=== PATIENT | female | born 1985 | race Caucasian/White ===

== ENCOUNTER 2018-08-08 14:11 | Outpatient (REF) | payer OTHER, SELFPAY ==
--- NOTE | 2018-08-08 13:40 | PAPFT_PTH ---
PATIENT: Blaire Rivera LOC: [facility] U#:[id number] AGE/SX: 32/F ROOM: RE08/08/[address]: RITA Banegas : 1985 BED: DIS: 08/08/2018 SPEC #: [id number] RECD: 08/08/18 17:32 STATUS: DAINEL RELoly #: [id number] CAYETANO: 08/08/18 13:[address]: Dolores Simon DEPT: [facility] Cytology RECD BY: Dai Gordillo ENTERED: 08/08/18 17:33 SP TYPE: PAPFT OTHR DR: Alyssia Christy APRN Tissues: 1 - CX/ENDOCX FOR PAP SMEARS Procedures: PAP THIN PREP/UVM Screening Comments: [id number]
== END 2018-08-08 14:31 ==
LOC: LBN 14:11
PROVIDERS: Visit Provider Nurse Practitioner Family
DX: Z12.4 Encounter for screening for malignant neoplasm of cervix (principal)
CPT/HCPCS: 88142

== ENCOUNTER 2018-08-29 13:17 | Emergency (ER) | payer OTHER, SELFPAY ==
[2018-08-29] VITALS (10 sets, daily range): BP systolic 91–122; BP diastolic 67–80; PULSE 70–87; RESP 14–23; TEMP 37.2; O2SAT 95–98
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
[2018-08-29] MEDS: Acetaminophen 500 MG TAB 1000 MG PO (14:10)
[2018-08-29] MEDS: Ibuprofen 600 MG TAB PO (14:21)
== END 2018-08-29 14:45 | disposition home or self-care (01) ==
PROVIDERS: Emergency Provider Physician Assistant
DX: M62.838 Other muscle spasm (principal); M54.2 Cervicalgia; M25.511 Pain in right shoulder; V43.52XA Car driver injured in collision with other type car in traffic accident, initial encounter
CPT/HCPCS: 99284; 70450; 72125

== ENCOUNTER 2018-09-04 09:01 | Outpatient (CLI) | payer OTHER, SELFPAY ==
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
== END 2018-09-04 09:21 ==
DX: S20.219A Contusion of unspecified front wall of thorax, initial encounter (principal); R07.81 Pleurodynia
CPT/HCPCS: 71046; 71100

== ENCOUNTER 2019-07-11 10:00 | Emergency (ER) | payer OTHER, SELFPAY ==
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
[2019-07-11 10:04] VITALS: BP 128/90; PULSE 123; RESP 18; TEMP 37.2; O2SAT 97
[2019-07-11 10:09] LABS: Bilirubin Negative (Negative); Blood Negative (Negative); Clarity Clear (Clear); Glucose Negative (Negative); Ketones Negative (Negative); Leukocyte Esterase Negative (Negative); Nitrite Negative (Negative); Specific Gravity <= 1.005 (1.005-1.025); Urobilinogen 0.2 EU/dL (Up TO 0.2)
--- NOTE | 2019-07-11 10:30 | DI.CT_ITS ---
EXAM: CT RENAL COLIC WO CLINICAL HISTORY: R flank pain, r/o kidney stone, mass. TECHNIQUE: Imaging Protocol: Axial computed tomography images with coronal and sagittal reformatted images were created and reviewed. CONTRAST MATERIAL: Intravenous: Omnipaque 350 Contrast volume:structured data in ml Contrast route:I V - Oral: yes / no COMPARISON: ABD PELVIS WITH CONTRAST from 02/16/2013 FINDINGS: ABDOMEN: Lung Bases: Normal where visualized. Liver: Question of slightly increased density. No measurable mass. Gallbladder and biliary tract: Status post cholecystectomy. No radiodense calculus or dilation. Pancreas: Normal density, no abnormal calcifications or inflammatory process. Spleen: Normal. Kidneys: Normal size, contour and axis. No radiodense stones or obstructive uropathy. No masses seen. Adrenal glands: No masses seen. Abdominal Aorta: Abdominal portion non-dilated. PELVIS: Bladder: Symmetric distention, no gross wall thickening. Bowel: No obstruction or bowel wall thickening. Peritoneal cavity: No ascites, collection or mesenteric inflammatory response. Bones: Sclerosis of the SI joints. No bony bridge bridging or erosion.. Reproductive: Status post hysterectomy. Ovaries unremarkable. IMPRESSION: Unremarkable CT scan of the abdomen and pelvis. RADIATION DOSE DELIVERED: Total DLP DATA REPOSITORY: All CT scans at this facility are submitted to the National Radiology Data Registry (NRDR) Dose Index Registry (DIR) with the [employer] (ACR). RADIATION OPTIMIZATION: All CT scans at this facility use at least one of these dose optimization te chniques: automated exposure control; mA and/or kV adjustment per patient size (includes targeted exa ms where dose is matched to clinical indication); or iterative reconstruction.
[2019-07-11] MEDS: Normal Saline Flush 10 ML SYR IVP (10:50)
[2019-07-11] MEDS: Lidocaine 5% Patch 1 PATCH TP (10:50)
[2019-07-11 10:51] LABS: Abs Immature Grans 0.01 k/cumm (0.0-0.09); Absolute Basophil Count 0.01 k/cumm (0.0-0.2); Absolute Eosinophil Count 0.18 k/cumm (0.0-0.7); Absolute Lymphocyte Count 1.72 k/cumm (1.2-3.4); Absolute Monocyte Count 0.58 k/cumm (0.11-0.7); Absolute Neutrophil Count 7.06 k/cumm (1.2-6.7); Basophils % 0.1; Eosinophils % 1.9; HCT 44.1 % (36.0-46.0); HGB 15.7 g/dL (12.0-15.5); Immature Grans % 0.1 %; Mean Corp. HGB Concentration 35.6 g/dL (32.0-36.0); Mean Corpuscular Hemoglobin 34.7 pg (27.0-33.0); Mean Corpuscular Volume 97.4 fL (80-95); Mean Platelet Volume 8.5 fL (8.0-11.0); Monocytes % 6.1; Neutrophils % 73.8; Platelet Count 287 x1000/uL (130-400); RBC 4.53 m/cumm (4.00-5.20); RBC Distribution Width 11.9 % (11.7-14.6); White Blood Cell Count 9.56 k/cumm (4.4-10.8)
[2019-07-11] MEDS: predniSONE 20 MG TAB 60 MG PO (10:51)
[2019-07-11] MEDS: Ketorolac 30 MG/ML VIAL IVP (10:51)
[2019-07-11 11:04] LABS: ALT 16 U/L (14-59); AST 9 U/L (15-37); Albumin 3.4 g/dL (3.4-5.0); Alkaline Phosphatase 77 U/L (46-116); Anion Gap 10.7 mmol/L (3-11); BUN 5 mg/dL (7-18); Bilirubin, Total 0.5 mg/dL (0.2-1.0); CO2 22.3 mmol/L (21.0-32.0); Calcium 8.8 mg/dL (8.5-10.1); Chloride 107 mmol/L (98-107); Glucose 115 mg/dL (74-106); Lipase 60 U/L (73-393); Potassium 3.3 mmol/L (3.5-5.1); Sodium 140 mmol/L (136-145); Total Protein 6.8 g/dL (6.4-8.2)
--- NOTE | 2019-07-11 11:21 | DI.VRAD_ITS ---
PROCEDURE INFORMATION: Exam: CT Abdomen And Pelvis Without Contrast Exam date and time: 07/11/2019 10:47 AM Age: 33 years old Clinical indication: Other: RT flank pain, R/O kidney stone, mass TECHNIQUE: Imaging protocol: Computed tomography of the abdomen and pelvis without contrast. Radiation optimization: All CT scans at this facility use at least one of these dose optimization techniques: automated exposure control; mA and/or kV adjustment per patient size (includes targeted exams where dose is matched to clinical indication); or iterative reconstruction. COMPARISON: CT ABD PELVIS WITH CONTRAST 02/16/2013 2:50 AM FINDINGS: Liver: The liver is within normal limits for this noncontrast study. Slight diffuse increased attenuation of the liver parenchyma when compared to the spleen. Gallbladder and bile ducts: There has been a cholecystectomy. There is no common bile duct dilation. There is no intrahepatic bile duct dilation. Pancreas: Unremarkable. No ductal dilation. Spleen: The spleen is normal. Adrenals: The adrenal glands are normal. Kidneys and ureters: No hydronephrosis. There is no evidence of renal or ureteral calcifications. Stomach and bowel: The stomach is normal. There is no evidence of intestinal obstruction. There is no wall thickening to suggest enteritis or colitis. Appendix: A normal appendix is identified. Intraperitoneal space: Unremarkable. No free air. No significant fluid collection. Vasculature: No abdominal aortic aneurysm. Lymph nodes: No enlarged lymph nodes. Bladder: Unremarkable as visualized. Reproductive: There has been a hysterectomy. The ovaries are normal. 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 No acute fracture. Soft tissues: Unremarkable. IMPRESSION: 1. No urolithiasis. 2. Cholecystectomy. 3. Hysterectomy. 4. Slight increased attenuation of the liver parenchyma when compared to the spleen which can be seen with iron deposition. 5. Bilateral and symmetrical superior sacroiliac joint sclerosis which can be seen with sacroiliitis. Dictated and Authenticated by: Rk Pino MD. Ordering:MAIKOL Dockery MD
== END 2019-07-11 11:55 | disposition home or self-care (01) ==
PROVIDERS: Emergency Provider Physician Assistant
DX: M46.1 Sacroiliitis, not elsewhere classified (principal); M62.830 Muscle spasm of back
CPT/HCPCS: 36415; 80053; 83690; 96374; 99284; 74176; 81003; 85025; 99285; J1885; J7512

== ENCOUNTER 2019-09-15 11:49 | Outpatient (REF) | payer OTHER, SELFPAY ==
--- NOTE | 2019-09-15 11:30 | PAPFT_PTH ---
PATIENT: Blaire Rivera LOC: [facility] U#:[id number] AGE/SX: 33/F ROOM: RE09/15/[address]: RITA Banegas : 1985 BED: DIS: 09/15/2019 SPEC #: [id number] RECD: 09/15/19 12:59 STATUS: DANIEL REQ #: [id number] CAYETANO: 09/15/19 11:[address]: Dolores Simon DEPT: [facility] Cytology RECD BY: Dai Gordillo ENTERED: 09/15/19 13:00 SP TYPE: PAPFT OTHR DR: Alyssia Christy APRN Tissues: 1 - CX/ENDOCX FOR PAP SMEARS Procedures: PAP THIN PREP/UVM Screening HPV DNA PROBE Comments: [id number]
== END 2019-09-15 12:09 ==
LOC: LBN 11:49
PROVIDERS: Visit Provider Nurse Practitioner Family
DX: Z12.4 Encounter for screening for malignant neoplasm of cervix (principal); Z11.51 Encounter for screening for human papillomavirus (HPV)
CPT/HCPCS: 88142; 87624

== ENCOUNTER 2020-04-15 09:41 | Outpatient (CLI) | payer OTHER, SELFPAY ==
[2020-04-16 14:38] LABS: COVID-19 RT-PCR UVMMC Result Negative (Negative)
== END 2020-04-15 09:42 | disposition home or self-care (01) ==
LOC: LBO 09:41
DX: Z20.822 Contact with and (suspected) exposure to COVID-19 (principal)
CPT/HCPCS: U0003

== ENCOUNTER 2020-10-14 06:29 | Emergency (ER) | payer OTHER, SELFPAY ==
--- NOTE | 2020-10-14 06:30 | DI.RAD_ITS ---
Exam(s) XR CHEST 2V PA LATERAL EXAM: XR CHEST 2V PA LATERAL CLINICAL HISTORY: right thoracic back pain TECHNIQUE: 2D digital imaging was performed. COMPARISON: CR XR ribs LT w PA lat chest from 09/04/2018 FINDINGS: The heart is not enlarged. The lungs are clear and well expanded. No pleural effusion seen. Mediastin al contours appear intact. IMPRESSION: Normal chest. RADIATION DOSE DELIVERED: Total DLP
[2020-10-14 06:32] VITALS: BP 131/78; PULSE 82; RESP 16; TEMP 36.2
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
[2020-10-14] MEDS: Lidocaine 5% Patch 1 PATCH TP (06:54)
[2020-10-14] MEDS: Cyclobenzaprine 10 MG TAB, 3 TABS/BTL PO (07:41)
== END 2020-10-14 07:42 | disposition home or self-care (01) ==
PROVIDERS: Emergency Provider Emergency Medicine
DX: M62.830 Muscle spasm of back (principal)
CPT/HCPCS: 99283; 71046

== ENCOUNTER 2021-02-16 16:05 | Outpatient (REF) | payer OTHER, SELFPAY ==
--- NOTE | 2021-02-16 15:10 | PAPFT_PTH ---
PATIENT: Blaire Rivera LOC: [facility] U#:[id number] AGE/SX: 35/F ROOM: RE02/16/[address]: RITA Banegas : 1985 BED: DIS: 02/16/2021 SPEC #: [id number] RECD: 02/16/21 17:43 STATUS: DANIEL REQ #: [id number] CAYETANO: 02/16/21 15:[address]: Dolores Simon DEPT: [facility] Cytology RECD BY: Dai Gordillo ENTERED: 02/16/21 17:44 SP TYPE: PAPFT OTHR DR: Alyssia Christy APRN Tissues: 1 - CX/ENDOCX FOR PAP SMEARS Procedures: PAP THIN PREP/UVM Screening HPV DNA PROBE Comments: [id number] (HPV 16 & 18/45)
== END 2021-02-16 16:06 | disposition home or self-care (01) ==
LOC: LBN 16:05
PROVIDERS: Visit Provider Nurse Practitioner Family
DX: Z12.72 Encounter for screening for malignant neoplasm of vagina (principal); Z11.51 Encounter for screening for human papillomavirus (HPV); Z90.710 Acquired absence of both cervix and uterus; Z86.001 Personal history of in-situ neoplasm of cervix uteri
CPT/HCPCS: 88142; 87624

== ENCOUNTER 2021-07-12 08:48 | Outpatient (CLI) | payer OTHER, SELFPAY ==
--- NOTE | 2021-07-12 08:15 | DI.RAD_ITS ---
Exam(s) XR SHOULDER LT COMPLETE 2+V EXAM: XR SHOULDER LT COMPLETE 2+V CLINICAL HISTORY: shoulder pain. TECHNIQUE: 2D digital imaging was performed. Two views. COMPARISON: No exams were available for comparison FINDINGS: BONES: No acute fracture is present. No bony destructive lesion is seen. JOINTS: No dislocation present. No degenerative changes. SOFT TISSUE: Normal. No tendon or joint space calcifications. IMPRESSION: Unremarkable radiographs of the left shoulder. DATA REPOSITORY: RADIATION DOSE DELIVERED:
== END 2021-07-12 08:49 | disposition home or self-care (01) ==
LOC: DIORS 08:50
PROVIDERS: Visit Provider Student in an Organized Health Care Education/Training Program
DX: M25.512 Pain in left shoulder (principal)
CPT/HCPCS: 73030

== ENCOUNTER 2021-11-08 02:25 | Outpatient (CLI) | payer BC, SELFPAY ==
[2021-11-08 12:15] LABS: Source Nasal/Nares
[2021-11-08 14:49] LABS: COVID-19 PCR Negative (Negative)
== END 2021-11-08 02:26 | disposition home or self-care (01) ==
PROVIDERS: Visit Provider Student in an Organized Health Care Education/Training Program
DX: Z20.822 Contact with and (suspected) exposure to COVID-19 (principal)
CPT/HCPCS: 87635

== ENCOUNTER 2021-11-10 07:56 | Day surgery (SDC) | payer OTHER, SELFPAY ==
[2021-11-10] VITALS (9 sets, daily range): BP systolic 112–130; BP diastolic 81–97; PULSE 76–90; RESP 16–24; TEMP 36.2–36.6; O2SAT 93–98; BMI 34.3
[2021-11-10] MEDS: Lactated Ringers 1,000 ML 30 ML IV (08:55)
--- NOTE | 2021-11-10 09:53 | W.ANESPRE ---
General Info Date of Service Date Performed: 11/10/21 Height: 5 ft 1 in Weight: 82.4 kg Body Mass Index (BMI): 34.3 Surgical Procedure: Operation Date: 11/10/21 09:55 Proposed Procedure Side Surgeon p Shoulder Arthroscopy w/Extensive Debridement, Biceps Tenodesis, Subacromial Decompression and Distal Clavicle Excision Left Riley Schmidt MD Meds Allergies and Home Medications Allergies Allergy/AdvReac Type Severity Reaction Status Date / Time Penicillins Allergy Mild Skin Rash Verified 11/10/21 08:12 aspirin AdvReac Intermediate Nausea Verified 11/10/21 08:12 Home Medication Medication Instructions Recorded acetaminophen 650 mg 650 mg PO Q8H PRN 09/03/18 tablet,extended release (Tylenol Arthritis Pain) naproxen 250 mg tablet 250 - 500 mg PO BID PRN #40 tabs 11/10/21 oxycodone 5 mg tablet 5 - 10 mg PO Q4H PRN moderate to 11/10/21 severe pain #18 tabs Current Visit Medications: Current Medications Generic Name Dose Route Start Last Admin Trade Name Freq PRN Reason Stop Dose Admin Ringer's Solution 1,000 mls @ 30 mls/hr 11/10/21 06:00 11/10/21 08:55 IV 11/10/21 16:00 30 mls/hr INFUSION JUN Administration Cefazolin Sodium/Dextrose 2 gm in 50 mls @ 100 mls/hr 11/10/21 06:00 Ancef Duplex IVPB 11/10/21 23:59 PREOP JUN IV Miscellaneous Supplies 1 each 11/10/21 06:00 Iv Access IV 11/10/21 23:59 DIRECTED JUN Oxycodone HCl 5 - 10 mg 11/10/21 07:15 Oxycodone 5 Mg Tab PO Q4H PRN PRN Sodium Chloride 0 ml 11/10/21 06:00 Normal Saline Flush 10 Ml Syr IV 11/10/21 23:59 PRN PRN Sodium Chloride 0 ml 11/10/21 06:00 Normal Saline 10 Ml Vial IJ 11/10/21 23:59 DIRECTED PRN Sterile Water 0 ml 11/10/21 06:00 Water,Injection,Sterile 10 Ml Vial IJ 11/10/21 23:59 DIRECTED PRN PFSH Active Problems Active Problems: Problem Status Onset Code Bursitis of left shoulder M75.52 Pain in left acromioclavicular joint M25.512 SLAP lesion of left shoulder S43.432A Chronic periscapular pain on left side M25.512, G89.29 Tendinitis of long head of biceps brachii of left shoulder M75.22 Vulvar lesion N90.89 Spasm of thoracic back muscle M62.830 Shoulder pain, left M25.512 History of section, low transverse Z98.891 Status post LEEP (loop electrosurgical excision procedure) of cervix Z98.890 Status post cholecystectomy Z90.49 Status post laparoscopic hysterectomy 07/28/15 Z90.710 Acquired absence of both cervix and uterus 08/02/17 Z90.710 Cigarette smoker 03/07/17 F17.210 Personal history of cervical dysplasia 09/28/11 Z87.410 Status post laparoscopic cholecystectomy 02/16/13 Z90.49 Asthma J45.909 Medical History Medical History Comments:: last cigarette today 0745 Surgical History Surgical History Cervical Procedure 2010 LEEP section Cholecystectomy 2013 Vaginal hysterectomy WITH B/L SALPINGECTOMY Tobacco Smoking/Tobacco Use Status: Current every day Tobacco Type: cigarettes Alcohol Alcohol Intake: current Alcohol intake frequency: a few times a month Substance Use Substance use: Never Substance use type: does not use Vital Signs and Lab Results Vital Signs Most Recent Vital Signs in EMR: Most Recent Vital Signs Temp Pulse Resp BP Pulse Ox 36.5 C 82 20 120/85 98 11/10/21 08:14 11/10/21 08:14 11/10/21 08:14 11/10/21 08:14 11/10/21 08:14 Lab Results Blood Type / Crossmatch: No Data to Display Complete Blood Count: No Data to Display Complete Metabolic Panel: No Data to Display Liver Function Panel: No Data to Display Coagulation Panel: No Data to Display Cardiac Panel: No Data to Display Arterial Blood Gas: No Data to Display Venous Blood Gas: No Data to Display Pancreas Panel: No Data to Display Thyroid Panel: No Data to Display Infectious Disease: Coronavirus (COVID-19)(PCR) Negative (Negative) 11/08/21 08:25 Coronavirus 2019 Source Nasal/Nares 11/08/21 08:25 Blood Cultures: No Data to Display Toxicology Panel: No Data to Display Panel: No Data to Display Anesthesia Assessment and Plan Anesthesia History Personal History: No History of Anesthesia Complications Family History: No Family History of Anesthesia Complications Exercise Tolerance Exercise Tolerance: Metabolic Equivalents>4 Pertinent Negatives Pertinent Negatives: No Symptoms of GERD, No Major Cardiovascular Symptoms or Complaints, No Major Pulmonary Symptoms or Complaints (Smoker x 27 years ppd) and No History of CVA/TIA Cardiac & Pulmonary Exam Cardiac Exam: Normal S1/S2 Heart Sounds Pulmonary Exam: Clear Bilateral Breath Sounds Implantable Cardiac Device Does patient have a Pacemaker or an ICD?: No Airway Exam Known Difficult Airway: No Mallampati Class: 1 Mouth Opening: Normal (> 3cm) Thyromental Distance: Greater than 3 cm Neck Range of Motion: Full ROM Neck Circumference: Normal Teeth Condition: Edentulous ASA Classification ASA Score: ASA 2 Emergency Case?: No NPO Status NPO Status: NPO Clears >2 hours, Solids >8 hours Status Status: History of Hysterectomy Anesthesia Plan Resuscitation Status: Full Code Anesthesia Technique: General Anesthesia Airway Planned: Endotracheal Tube Pain Management: Surgeon and patient request nerve block Monitors Used: Standard Monitors
--- NOTE | 2021-11-10 10:35 | W.ANESNERVE ---
Nerve Block Single Injection Procedure Date and Time Date Performed: 11/10/21 Procedure Start: 10:20 Location Where Procedure Performed Procedure Location: Day Surgery Unit Reason Performed: Postoperative Analgesia Requesting Provider: Riley Schmidt Timeout Performed Timeout Performed: Yes Monitoring Used ECG, Blood Pressure and SpO2 Sterility Sterility: Hand Hygiene, Surgical Cap, Surgical Mask, Eye Protection and Chlorhexidine Sedation Given During Procedure Sedation Given (Indicate Dose Given): Versed IV Dose:: 2 mg Patient Mental Status Patient Mental Status: Sedate with meaningful communication Nerve Block 1st Nerve Block: Laterality: Left Block Type: Interscalene Needle / Catheter Used: 100mm SonoPlex II Local Anesthetic Bolus (Indicate Dose Given): Lidocaine used for local infiltration of skin, Injected in 3-5ml increments after negative blood aspiration, Bupivacaine 0.5% Dose:: 10cc and Exparel Dose:: 10cc Additives (Indicate Dose Given): None Ultrasound: Sterile probe cover and gel used Ultrasound Image Saved?: Yes Nerve Stimulator: Not Used Paresthesia: Left (Transient- Needle repositioned to releive parathesia, confirmed with pt that parathesia gone before injecting) Paresthesia Duration: Transient Post Procedure Pain score (0-10): 0 Procedure Tolerated: No Complications and Patient tolerated well Procedure Outcome: Successful Performed By: Silver Diaz
[2021-11-10] MEDS: EPINEPHrine 30 MG/30 ML VIAL (12:33)
--- NOTE | 2021-11-10 13:28 | PDOC.DSDIS_ITS ---
Discharge Plan Disposition Patient Disposition: HOME Condition: Stable Discharge Details Reason For Visit: Left shoulder surgery Attending Provider: Riley Schmidt Primary Care Provider: Alyssia Christy Home Meds and New Rx's Prescriptions: New naproxen 250 mg tablet 250 - 500 mg PO BID PRNQty: 40 0RF Rx Instructions: take with a meal oxycodone 5 mg tablet 5 - 10 mg PO Q4H MDD 30 mg PRN (Reason: moderate to severe pain) Qty: 18 0RF Continued acetaminophen [Tylenol Arthritis Pain] 650 mg tablet extended release 650 mg PO Q8H PRN Discharge Instructions Additional Instructions: Surgery: Left shoulder arthroscopy with extensive debridement, biceps tenodesis, subacromial decompression, and distal clavicle excision Activity: You should gradually increase range of motion motion and use of your shoulder. You may use your shoulder for all regular activities as long as you p rotect the biceps and avoid any resisted or weighted elbow flexion or supination. Avoid lifting, reaching overhead or away from body for at least 6 to 8 weeks. You may use the sling whenever you are out of the house for a few weeks. At home it is best to remove the sling and rest the arm on a pillow at your side or support the operative side with your other hand. A physical therapy prescription will be sent electronically to start in about 2 weeks. Prescriptions: Naproxen 250 mg take 1-2 every 12 hours with a meal as needed for moderate pain Oxycodone 5 mg take 1-2 every 4-6 hours as needed for severe pain You may use [id number] Tylenol (acetaminophen) as needed for mild pain. These pain medications may be taken all at once or in different combinations as needed. Also, recommend Colace (docusate) as a stool softener as surgery and pain medicine cause constipation. You may try [id number] diphenhydramine (Benadryl) 25-50 mg nightly as a sleep aid Dressings: Remove shoulder bandage after 3 days. Leave the sticky Steri-Strips in place until they fall off or remove them after you shower. Cover the incisions with Band-Aids or leave them open to air. You may shower after 5 days. Follow-up: 10-[address] Schmidt You may take off the leg compression stockings this evening at home. You may also leave them on a few days longer if you have a history of leg swelling or edema. Let us know right away if you develop any redness, drainage, fevers, chest pain, or trouble breathing. Do not drink alcohol or drive for at least 24 hours after anesthesia. Please call the office during business hours with any questions or concerns. Discharge Orders Discharge Orders: Discharge Order (Routine); Ordered 11/10/21 Ordered By: Riley Schmidt DS: Diagnosis Discharge Diagnosis (1) SLAP lesion of left shoulder: Status: Acute (2) Bursitis of left shoulder: Status: Acute (3) Pain in left acromioclavicular joint: Status: Acute (4) Tendinitis of long head of biceps brachii of left shoulder: Status: Acute
--- NOTE | 2021-11-10 13:32 | ROE_ITS ---
Operative Note Operative Note DATE OF PROCEDURE: 11/10/21 PRE-OP DIAGNOSIS: Left: 1. AC joint pain 2. LHB tendinopathy 3. Bursitis POST-OP DIAGNOSIS: same PROCEDURE: Left: 1. Arthroscopic distal clavicle excision, CPT# 21657. This involved arthroscopically exposing the underside of the acromioclavicular joint, smoothing out bone spurs, and removing just enough of the distal clavicle so there was no bone left engaging the acromion. 2. Arthroscopic biceps tenodesis, CPT# 76454. This involved arthroscopically suturing and reattaching the long head of the biceps tendon to the proximal humerus at the superior margin of the bicipital groove with a screw at the correct tension. 3. Extensive debridement, CPT# 21883. This involved using arthroscopic hand instruments, power instruments, and radiofrequency instruments to release the long head of the biceps tendon and debride areas of labral tearing, SLAP tearing, capsulitis, synovitis, and chondromalacia about the biceps groove within the glenohumeral joint anteriorly, superiorly and posteriorly. 4. Subacromial decompression with partial acromioplasty, CPT# 28153. This involved using arthroscopic power instruments and a radiofrequency wand to complete a bursectomy and remove bone spurs on the undersurface of the acromion. The senior assistant manager was medically required in order to help assist in techniques above, which require positioning the arm, holding the arthroscope, and manip ulating multiple instruments and sutures at the same time. This cannot be done without the help of an experienced senior assistant manager. SURGEON: Riley Schmidt BRASS FINISHER: Will Crow ANESTHESIA TYPE: General LMA/ETT and Primary Nerve Block Refer to Anesthesia Record ESTIMATED BLOOD LOSS: 10 PATHOLOGY: none sent COMPLICATIONS: None Patient was transported to: PACU Patient's condition: stable Implants: Arthrex: 4.75mm SwiveLocks x 1 Indications: The patient was diagnosed with the above conditions and appropriately indicated for surgical intervention. Please see complete medical record for details. Findings: Exam under anesthesia: Full range of motion, no instability Glenohumeral joint: Significant anterior synovitis involving the rotator interval between the subscapularis and leading edge of the supraspinatus. Both the subscapularis supraspinatus and remainder of the rotator cuff was intact. Long head biceps tendon had moderate injection. There is anterior labral fraying that continued superiorly into a SLAP tear. The anterior triangle had chronic appearing significant fraying fibrillations and some small soft tissue and probably cartilaginous loose bodies. Mild chondromalacia on the anterior humeral head. Remainder articular cartilage intact. Subacromial space: Moderate bursitis. Intact bursal rotator cuff. Mild impingement distal clavicle on acromion with mild downsloping hypertrophic widening distal clavicle and acromion. Procedure Description: In the operating room, general anesthesia was induced. Bilateral shoulders were examined. The patient was positioned in the beachchair position. All bony prominences were well-padded. Preoperative antibiotics were administered. The shoulder was prepped and draped in the usual sterile fashion. The correct pa tient, procedure, and side of the procedure were all verified prior to incision. Starting through the posterior portal a standard complete diagnostic arthroscopy was performed of the glenohumeral joint including inspection of the long head of the biceps, anterior and superior labrum, subscapularis tendon, supraspinatus and infraspinatus tendons, and axillary recess. The glenoid and humeral head cartilage as well as the posterior labrum were inspected from an anterior viewing portal. Significant findings and interventions noted above. An all-arthroscopic suprapectoral biceps tenodesis was performed through an anterior portal using a Loop N Tack method with a SutureTape FiberLink cinched around and through the tendon. The biceps was tenotomized from the labrum and fixated with a suture anchor at the superior margin of the bicipital groove. Starting through the posterior portal, the arthroscope was directed into the subacromial space. A lateral 50 yard line lateral portal was created. A combination of power instruments and a radiofrequency ablator were used to debride bursitis anteriorly, posteriorly, and laterally as well as expose and smooth bone spurring on the undersurface of the acromion. The coracoacromial ligament was partially released. The bursectomy was completed viewing laterally and working from posteriorly and the rotator cuff was thoroughly inspected with findings noted above. The anterior portal was redirected towards the undersurface of the AC joint. A shaver and electrocautery device were used to clear soft tissue from the undersurface of the AC joint. The distalmost few millimeters of the distal clavicle was then removed and smoothed. Care was taken to alternate between working through the anterior portal and viewing through the anterior portal to ensure that proper amount of bone was removed and there was no engaging bone left behind especially superiorly. The shoulder was drained of arthroscopic fluid. All portal sites were copiously irrigated. These incisions were closed using 3-0 Monocryl in a buried fashion and then covered with Mastisol, Steri-Strips, Xeroform, dry gauze, and ABDs. The dressings were covered and secured with Medipore tape. The operative extremity was placed into a sling for immobilization. The patient awoke from anesthesia without complication and was transferred to the recovery room in a stable condition.
--- NOTE | 2021-11-10 13:42 | W.ANESPOSTOP ---
Postoperative Evaluation Date, Time and Location Date Performed: 11/10/21 Time Performed: 13:42 Patient Location: Day Surgery Unit Vital Signs Most Recent Imported Vital Signs: Most Recent Vital Signs Temp Pulse Resp BP Pulse Ox 36.5 C 78 18 123/88 94 11/10/21 13:18 11/10/21 13:18 11/10/21 13:18 11/10/21 13:18 11/10/21 13:18 Pain Score Most Recent Pain Score: Most Recent Pain Score Pain Level 0 11/10/21 13:18 Assessment Mental Status: Awake (Alert & Oriented to Patient Baseline) Airway and Respiratory Function: Patent airway with normal (patient baseline) respiratory exam Cardiovascular Function: Hemodynamically Stable Hydration Status: Adequately Hydrated Nausea & Vomiting: No Nausea or Vomiting Pain: Pt. Denies Any Pain Peripheral Nerve Block: Regional nerve block not resolved at time of post operative discharge
== END 2021-11-10 14:20 | disposition home or self-care (01) ==
PROVIDERS: Visit Provider Student in an Organized Health Care Education/Training Program
PROC: (CPT 29805; principal; 2021-11-10 09:45)
DX: M75.52 Bursitis of left shoulder (principal); M75.22 Bicipital tendinitis, left shoulder; S43.432A Superior glenoid labrum lesion of left shoulder, initial encounter; X58.XXXA Exposure to other specified factors, initial encounter; M75.42 Impingement syndrome of left shoulder
CPT/HCPCS: 29828; 29826; 29824; 29823; 76942; J0131; J1100; J1885; J2250; J2405

== ENCOUNTER 2022-08-24 09:38 | Outpatient (REF) | payer BC, SELFPAY ==
[2022-08-24 13:12] LABS: Bilirubin Negative (Negative); Blood Large (Negative); Clarity Clear (Clear); Glucose Negative (Negative); Ketones Negative (Negative); Leukocyte Esterase Moderate (Negative); Nitrite Positive (Negative); Specific Gravity <= 1.005 (1.005-1.025); Urobilinogen 0.2 mg/dL (Up to 0.2); pH 5.5 (5-8)
[2022-08-24 13:25] LABS: Bacteria Moderate HPF (Negative); C & S Indicated? Yes; Casts Negative LPF (Negative); Crystals Negative HPF (Negative); Epithelial Cells Few HPF (Negative); Mucus Negative (Negative); Other Cells Rare Yeast (Negative)
== END 2022-08-24 09:39 | disposition home or self-care (01) ==
LOC: LBN 09:38
PROVIDERS: PCP Nurse Practitioner Family; Visit Provider Physician Assistant
DX: N39.0 Urinary tract infection, site not specified (principal)
CPT/HCPCS: 87077; 81003; 81015; 87086; 87186

== ENCOUNTER 2022-09-01 12:02 | Outpatient (REF) | payer BC, SELFPAY | END 2022-09-01 12:03 | disposition home or self-care (01) | LOC: LBN 12:02 | PROVIDERS: PCP Nurse Practitioner Family; Visit Provider Physician Assistant Medical | DX: R30.0 Dysuria (principal) | CPT/HCPCS: 87086 ==

== ENCOUNTER 2022-09-04 12:31 | Outpatient (REF) | payer BC, SELFPAY ==
--- NOTE | 2022-09-04 11:00 | PAPFT_PTH ---
PATIENT: Blaire Rivera LOC: [facility] U#:[id number] AGE/SX: 36/F ROOM: RE09/04/[address]: Elizabeth Garsia NP : 1985 BED: DIS: 09/04/2022 SPEC #: [id number] RECD: 09/04/22 12:42 STATUS: DANIEL RELoly #: [id number] CAYETANO: 09/04/22 11:[address]: Sun WIN,Elizabeth DEPT: [facility] Cytology RECD BY: Dai Gordillo ENTERED: 09/04/22 12:43 SP TYPE: PAPFT OTHR DR: Donald Meyers DNP Tissues: 1 - CX/ENDOCX FOR PAP SMEARS Procedures: PAP THIN PREP/UVM Screening HPV DNA PROBE Comments: [id number]
== END 2022-09-04 12:32 | disposition home or self-care (01) ==
LOC: LBN 12:31
PROVIDERS: PCP Nurse Practitioner Family; Visit Provider Nurse Practitioner Women's Health
DX: Z11.51 Encounter for screening for human papillomavirus (HPV) (principal)
CPT/HCPCS: 88142; 87624

== ENCOUNTER 2022-09-05 02:52 | Outpatient (CLI) | payer BC, SELFPAY ==
[2022-09-05 14:15] LABS: TSH (W/Ref FT4) 2.05 uIU/mL (0.36-3.74)
[2022-09-06 19:34] LABS: FSH 9.6 mIU/mL (See Note)
== END 2022-09-05 02:53 | disposition home or self-care (01) ==
LOC: LBO 02:52
PROVIDERS: PCP Nurse Practitioner Family; Visit Provider Nurse Practitioner Women's Health
DX: R23.2 Flushing (principal); R63.5 Abnormal weight gain
CPT/HCPCS: 36415; 83001; 84443

== ENCOUNTER 2024-10-27 14:51 | Outpatient (REF) | payer OTHER, SELFPAY ==
--- NOTE | 2024-10-27 14:40 | PAPFT_PTH ---
PATIENT: Blaire Rivera LOC: [facility] U#:[id number] AGE/SX: 38/F ROOM: RE10/27/[address]: Elizabeth Garsia NP : 1985 BED: DIS: 10/27/2024 SPEC #: [id number] RECD: 10/27/24 18:01 STATUS: DANIEL REQ #: [id number] CAYETANO: 10/27/24 14:[address]: Sun WIN,Elizabeth DEPT: [facility] Cytology RECD BY: Dai Gordillo ENTERED: 10/27/24 18:02 SP TYPE: PAPFT OTHR DR: Unknown,Unknown Tissues: 1 - CX/ENDOCX FOR PAP SMEARS Procedures: PAP THIN PREP/UVM Screening HPV DNA PROBE Comments: [id number] (HPV 16 & 18/45)
== END 2024-10-27 14:52 | disposition home or self-care (01) ==
LOC: LBN 14:51
PROVIDERS: Visit Provider Nurse Practitioner Women's Health
DX: Z12.4 Encounter for screening for malignant neoplasm of cervix (principal)
CPT/HCPCS: 88142; 87624

== ENCOUNTER 2024-10-27 15:05 | Outpatient (CLI) | payer OTHER, SELFPAY ==
[2024-10-27 15:13] LABS: HCT 44.4 % (36.0-46.0); HGB 15.8 g/dL (11.2-15.7); MCH 34.5 pg (27.0-33.0); MCHC 35.6 % (32.0-36.0); MCV 97 fL (80-95); MPV 8.0 fL (8.0-11.0); Platelet Count 273 10^3/uL (130-400); RBC 4.58 10^6/uL (3.93-5.22); RDW 11.7 % (11.7-14.6); RDW-SD 41.8 fL; WBC 10.13 10^3/uL (4.4-10.8)
[2024-10-27 15:35] LABS: Hemoglobin A1C 4.8 % (<5.7)
[2024-10-27 16:31] LABS: ALT 20 U/L (14-59); AST 12 U/L (15-37); Albumin 3.7 g/dL (3.4-5.0); Alkaline Phosphatase 104 U/L (46-116); Anion Gap 8.8 mmol/L (3-11); BUN 9 mg/dL (7-18); Bilirubin, Total 0.4 mg/dL (0.2-1.0); CO2 29.2 mmol/L (21.0-32.0); Calcium 9.6 mg/dL (8.5-10.1); Calculated LDL 149 mg/dL (<100); Chloride 103 mmol/L (98-107); Cholesterol 233 mg/dL (<200); Estimated GFR 112.75 (mL/min/1.73m2); Glucose 103 mg/dL (74-106); HDL Cholesterol 48 mg/dL (>or=50); Potassium 3.6 mmol/L (3.5-5.1); Sodium 141 mmol/L (136-145); TSH (W/Ref FT4) 3.18 uIU/mL (0.36-3.74); Total Protein 7.3 g/dL (6.4-8.2); Triglyceride 182 mg/dL (<150)
== END 2024-10-27 15:06 | disposition home or self-care (01) ==
LOC: LBO 15:06
PROVIDERS: Visit Provider Nurse Practitioner Women's Health
DX: Z01.419 Encounter for gynecological examination (general) (routine) without abnormal findings (principal); R63.5 Abnormal weight gain
CPT/HCPCS: 36415; 80053; 80061; 85027; 83036; 84443